=== PATIENT | male | born 1950 ===

== ENCOUNTER 2021-05-23 00:50 | Inpatient (IN) | payer OTHER ==
[~2021-05-23] VITALS: Ht 182.9 cm; Wt 105.4 kg
[2021-05-23] MEDS ORDERED: MORPHINE SULFATE 4 MG/ML, 1ML IVPush PRN (01:00)
[2021-05-23] MEDS ORDERED: PLEASE ENTER ALLERGIES MC SCH (01:00)
[2021-05-23] MEDS ORDERED: SODIUM CHLORIDE FLUSH 10ML SYR IVF ONE (01:00)
[2021-05-23] MEDS ORDERED: ATOR20TA37 PO (01:10)
[2021-05-23] MEDS ORDERED: CARV6.2512 PO (01:10)
--- NOTE | 2021-05-23 01:11 | NUR ---
PT IS A VERY PLEASANT 70 YEAR OLD MALE, TRANSFERED HERE FROM [facility] FOR ELEVATED TROP AT 0.5. PT STATES HIS CHEST STARTED TO HURT AROUND 1800, PAIN RADIATING TO HIS JAW. PT FRIENDS TOOK HIM TO ER.
[2021-05-23 01:44] LABS: ALANINE AMINOTRANSFERASE 36 U/L (12-78); ALBUMIN 3.5 g/dL (3.4-5.0); ANION GAP 5 mmol/L (5-15); CALCIUM 8.8 mg/dL (8.5-10.1); CHLORIDE 109 mmol/L (98-107); CREATININE 1.07 mg/dL (0.7-1.3); INTERNATIONAL NORMALIZED RATIO 1.05 (0.93-1.1); PROTHROMBIN TIME 11.2 Seconds (9.6-11.5)
[2021-05-23 01:45] LABS: BASOPHILS % (AUTO) 1 % (0-1); EOSINOPHILS % (AUTO) 0 % (1-7); LYMPHOCYTES % (AUTO) 12 % (22-44); MEAN CORPUSCULAR HEMOGLOBIN 29.6 pg (27.5-34.5); MEAN CORPUSCULAR HGB CONC 34.1 g/dL (33.2-36.2); MEAN PLATELET VOLUME 8.9 fL (7.4-10.4); MONOCYTES % (AUTO) 7 % (2-9); NEUTROPHILS % (AUTO) 80 % (42-75); PLATELET COUNT 110 x10^3/uL (130-400); RED BLOOD COUNT 5.43 x10^6/uL (4.38-5.82); RED CELL DISTRIBUTION WIDTH 15.1 % (9.4-14.8)
[2021-05-23 01:48] LABS: ALKALINE PHOSPHATASE 126 U/L (45-117); BILIRUBIN,TOTAL 1.2 mg/dL (0.2-1.0); TOTAL PROTEIN 7.3 g/dL (6.4-8.2)
[2021-05-23] MEDS ORDERED: HEPARIN 5,000 UNITS/ML, 1ML IV ONE (02:00)
[2021-05-23] MEDS ORDERED: HEPARIN 25,000 UNITS/250ML PMX 250 ML IV PRN (02:00)
[2021-05-23] MEDS ORDERED: HEPARIN 5,000 UNITS/ML, 1ML ONE (02:16)
[2021-05-23] MEDS ORDERED: HEPARIN 25,000 UNITS/250ML PMX 250 ML ONE (02:17)
--- NOTE | 2021-05-23 02:50 | NUR ---
PT STARTED ON HEPARIN DRIP, HELD BOLUS DOSE PER ERP BECAUSE PT WAS THERAPUTIC WITH ANTI XA
[2021-05-23] MEDS ORDERED: HEPARIN 5,000 UNITS/ML, 1ML IV PRN (03:30)
[2021-05-23] MEDS ORDERED: ACETAMINOPHEN 325 MG TABLET PO PRN (03:30)
[2021-05-23] MEDS ORDERED: ONDANSETRON 2MG/ML, 2ML IVPush PRN (03:30)
--- NOTE | 2021-05-23 03:34 | NUR ---
REPORT GIVEN TO JOHNATHAN DUNBAR
[2021-05-23] MEDS ORDERED: MORPHINE SULFATE 4 MG/ML, 1ML ONE (03:36)
[2021-05-23] MEDS: morphine SULFATE 10 MG/ML, 1ML IV PRN ×2 (03:39→17:31)
[2021-05-23] MEDS: ATORVASTATIN 80 MG TABLET PO SCH ×2 (04:35→21:18)
[2021-05-23] MEDS: HEPARIN 25,000 UNITS/250ML PMX 250 ML IV PRN (04:35)
[2021-05-23 04:45] VITALS: BP 117/79
[2021-05-23 06:08] LABS: CHOLESTEROL, TOTAL 131 mg/dL (140-239)
[2021-05-23 06:12] LABS: CHOL/HDL RATIO 1.9; HDL CHOL % 53 % (26-37); HDL CHOLESTEROL (DIRECT) 70 mg/dL (40-60); LDL CHOLESTEROL,CALCULATED 49 mg/dL (54-169); LDL/HDL RATIO 0.7 (0.5-3.0); TRIGLYCERIDES 58 mg/dL (50-200); VLDL CHOLESTEROL 12 mg/dL (0-25)
[2021-05-23 07:09] VITALS: BP 105/65
[2021-05-23 12:38] VITALS: BP 115/76
[2021-05-23 17:34] VITALS: BP 108/76
[2021-05-23 18:40] VITALS: BP 107/74
[2021-05-24 01:06] VITALS: BP 94/61
[2021-05-24] MEDS: HEPARIN 25,000 UNITS/250ML PMX 250 ML IV PRN (01:08)
[2021-05-24 03:21] LABS: BASOPHILS % (AUTO) 1 % (0-1); EOSINOPHILS % (AUTO) 0 % (1-7); LYMPHOCYTES % (AUTO) 12 % (22-44); MEAN CORPUSCULAR HEMOGLOBIN 29.6 pg (27.5-34.5); MEAN CORPUSCULAR HGB CONC 34.2 g/dL (33.2-36.2); MEAN PLATELET VOLUME 9.4 fL (7.4-10.4); MONOCYTES % (AUTO) 12 % (2-9); NEUTROPHILS % (AUTO) 75 % (42-75); PLATELET COUNT 95 x10^3/uL (130-400); RED BLOOD COUNT 5.16 x10^6/uL (4.38-5.82); RED CELL DISTRIBUTION WIDTH 15.3 % (9.4-14.8)
[2021-05-24 03:22] LABS: ANION GAP 3 mmol/L (5-15); CALCIUM 8.7 mg/dL (8.5-10.1); CHLORIDE 107 mmol/L (98-107); CREATININE 1.18 mg/dL (0.7-1.3)
[2021-05-24] MEDS ORDERED: ASPIRIN 325 MG TABLET EC PO SCH (06:00)
[2021-05-24 06:44] VITALS: BP 95/65
[2021-05-24] MEDS ORDERED: DIPHENHYDRAMINE 50 MG/ML, 1ML IVPush ONE (08:00)
[2021-05-24] MEDS ORDERED: methylPREDNISolone SOD SUCC 125 MG/2 ML IVPush ONE (08:00)
[2021-05-24 13:40] VITALS: BP 113/81
[2021-05-24] MEDS ORDERED: BIVALIRUDIN 250 MG ONE (14:00)
[2021-05-24] MEDS ORDERED: MIDAZOLAM 1 MG/ML, 5ML ONE (14:00)
[2021-05-24] MEDS ORDERED: FENTANYL PF 100 MCG/2ML ONE (14:00)
[2021-05-24] MEDS ORDERED: HEPARIN 1,000 UNITS/ML, 10ML ONE (14:00)
[2021-05-24] MEDS ORDERED: LIDOCAINE-MPF 1%, 5ML ONE (14:00)
[2021-05-24] MEDS ORDERED: VERAPAMIL 2.5 MG/ML, 2ML ONE (14:00)
[2021-05-24] MEDS ORDERED: ADENOSINE 6 MG/2 ML ONE (14:36)
[2021-05-24] MEDS ORDERED: SODIUM CHLORIDE 0.9% 1,000 ML IV SCH (15:00)
[2021-05-24] MEDS ORDERED: CLOP75TA PO (16:58)
[2021-05-24] MEDS ORDERED: ATOR-2 PO (16:58)
[2021-05-24] MEDS ORDERED: ASPI-1026 PO ×2 (16:58)
[2021-05-24] MEDS ORDERED: CARV3.122 PO (16:58)
[2021-05-24] MEDS ORDERED: metFORMIN 500 MG TABLET PO SCH (17:00)
[2021-05-24] MEDS ORDERED: METF500T17 PO (17:06)
[2021-05-24] MEDS ORDERED: ASPI81TA45 PO (17:17)
[2021-05-24] MEDS ORDERED: CLOPIDOGREL 75 MG TABLET ONE (18:22)
[2021-05-25] MEDS ORDERED: CLOPIDOGREL 75 MG TABLET PO SCH (09:00)
== END 2021-05-24 18:25 | disposition home or self-care (01) | DRG 282 ==
LOC: ED 01:00 → CCU 01:57 → 5SO 04:02
PROVIDERS: ADMIT Emergency Medicine; ATTEND Internal Medicine
PROC: 4A023N7 Measurement of Cardiac Sampling and Pressure, Left Heart, Percutaneous Approach (ICD-10-PCS; principal; 2021-05-24)
PROC: B2111ZZ Fluoroscopy of Multiple Coronary Arteries using Low Osmolar Contrast (ICD-10-PCS; 2021-05-24)
PROC: B2151ZZ Fluoroscopy of Left Heart using Low Osmolar Contrast (ICD-10-PCS; 2021-05-24)
DX: I21.4 Non-ST elevation (NSTEMI) myocardial infarction (principal); E11.9 Type 2 diabetes mellitus without complications; E78.5 Hyperlipidemia, unspecified; I25.119 Atherosclerotic heart disease of native coronary artery with unspecified angina pectoris; I10 Essential (primary) hypertension; I71.4 Abdominal aortic aneurysm, without rupture; K57.90 Diverticulosis of intestine, part unspecified, without perforation or abscess without bleeding; Z82.49 Family history of ischemic heart disease and other diseases of the circulatory system; Z87.891 Personal history of nicotine dependence; Z91.013 Allergy to seafood; Z92.21 Personal history of antineoplastic chemotherapy
CPT/HCPCS: 36415; 80048; 80053; 80061; 83036; 83880; 84484; 85025; 85520; 85610; 85730; 93005; 93306; 93458; 96365; 99156; C1769; C1894; G0378; J0153; J0583; J1644; J2250; J3010; J1200; J2270; J2930; Q9967